=== PATIENT | male | born 1970 | race American Indian/Alaskan Native ===

== ENCOUNTER 2017-11-22 02:38 | Emergency (ER) | payer OTHER ==
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
[2017-11-22 08:56] VITALS: BP 140/76
== END 2017-11-22 08:38 | disposition home or self-care (01) ==
LOC: ED 02:38
DX: M79.1 Myalgia (principal); F17.200 Nicotine dependence, unspecified, uncomplicated; V89.2XXA Person injured in unspecified motor-vehicle accident, traffic, initial encounter
CPT/HCPCS: 99282